=== PATIENT | male | born 1960 | race Caucasian/White ===

== ENCOUNTER → 2016-09-08 | Day surgery (SDC) | payer BC ==
[~2016-09-08] MED LIST: CRES20TA PO; GENTAMICIN SULFATE 80 MG/2 ML VIAL ONE; GLIP-158 PO; GLUCTAB PO; GLYPIZIDE; IBUP-238 PO; KETOROLAC TROMETHAMINE 30 MG/ML (IVP) VIAL IV PUSH ONE; LACTATED RINGER'S 1000 ML INJ 1,000 ML ONE; LISI-360 PO; MIDAZOLAM HCL 2 MG/2 ML VIAL ONE; ONDANSETRON HCL 4 MG/2 ML VIAL IV PUSH ONE; PROPOFOL 200 MG/20 ML AMP IV ONE
--- NOTE | 2016-09-08 20:54 | TN ---
cc: ROJAS SILVA M.D. DATE OF SURGERY 09/08/2016 PREOPERATIVE DIAGNOSES 1. Right ureteral pelvic junction calculus (ICD - 10 code N20.00). 2. Left ureteral calculus (ICD - 10 code N20.1). POSTOPERATIVE DIAGNOSES 1. Right ureteral pelvic junction calculus (ICD - 10 code N20.00). 2. Left ureteral calculus (ICD - 10 code N20.1). PROCEDURE 1. Extracorporeal shock wave lithotripsy of right ureteropelvic junction calculus (CPT code 23935). 2. Extracorporeal shock wave lithotripsy (ESWL) left ureteral calculus and (CPT code 00283). 3. Cystourethroscopy with bilateral ureteral stent placement (6-Bruneian x 22 cm) (CPT code 92908 - 51). INDICATIONS Mr. Bahena is a 56-year-old gentleman who has an approximately 1.4 cm right ureteral pelvic junction calculus and an approximately 9 mm left proximal ureteral calculus. He presents now for definitive treatment of both. Findings are normal urethra with a mild bulbous urethral narrowing or stricture. The prostatic urethra shows bilateral hyperplasia with a mild obstruction and a very elevated bladder neck. The bladder neck itself is open. The trigone shows ureteral orifice normal size, shape and position, effluxing clear urine. There are no aubrie tumors abnormal mucosa or calcifications identified. There are no tumor, stones, or diverticula and no significant trabeculation. The procedure was as follows. PROCEDURE DETAILS The procedure as well as risks and benefits were explained to the patient. Informed consent was obtained. The patient was taken major operative theater where he was placed on the [facility] SLX-FII lithotripsy table. At this time the patient was identified as well as the operative site. A universal time-out was performed in standard fashion. At this time general anesthetic and prophylactic intravenous antibiotics consisting of gentamicin 80 mg was administered. After adequate anesthetic he was placed in low dorsolithotomy position, prepped and draped in the usual sterile fashion. At this time a 22.5 Bruneian cystoscope with a 30 degree lens was inserted into the urethra and bladder with the above findings. Attention was directed to the left ureteral orifice where 0.035 inch hybrid guidewire was placed under fluoroscopic guidance up the ureter into the renal pelvis. Over this guidewire a 6-Bruneian x 22 cm double-J ureteral stent was placed with the help of a pusher. When the distal end could be seen fluoroscopically in the renal pelvis, the pusher and guidewire were removed and there was a nice curl in the bladder. Attention was directed to the right side and the same exact procedure was done with a 0.035 inch hybrid guidewire was able to be placed without difficulty into the renal pelvis, fluoroscopically confirmed, the guidewire and pusher were removed. There is a nice curl radiographically in the renal pelvis rather and the bladder under direct vision. The bladder was then decompressed and cystoscope removed. The patient placed back in the supine position. Attention was then directed to the you right ureteropelvic junction stone and the shock heads were engaged and extracorporeal shock wave lithotripsy was performed in standard fashion at 120 Hz of power level of 7 and 3000 shocks with apparent pulverization of the stone. After completion of that, the left ureteral stone was addressed. The stone was imaged and the shock heads were engaged. A total of 3000 shocks at a high power level of 8.0 of that stone with apparent pulverization that stone. That was done at the same frequency of 120 Hz. At this time the patient emerged from anesthetic without difficulty and was transferred to recovery in stable condition to be discharged home when criteria is met. The patient may require additional endoscopic or extracorporal treatment depending on the results of a KUB in two weeks. MD COLLINS Cordero/MARY /5:09 PM /8:39 PM
== END | disposition home or self-care (01) ==
LOC: ESDC 10:58
PROVIDERS: ATTEND Urology
DX: N20.1 Calculus of ureter (principal); E11.9 Type 2 diabetes mellitus without complications; Z79.84 Long term (current) use of oral hypoglycemic drugs
CPT/HCPCS: 00872; 00910; 50590; 52332; 82948; C1769; J1580; J1885; J2250; J2405; J3010; J7120

== ENCOUNTER → 2016-10-20 | Day surgery (SDC) | payer BC ==
[~2016-10-20] MED LIST changes: +SODIUM CHLORIDE 0.9% SOLN 100 ML (PAB) BAG IV ONE
--- NOTE | 2016-10-21 05:10 | TN ---
cc: ROJAS SILVA M.D. DATE OF SURGERY 10/20/2016 PREOPERATIVE DIAGNOSIS 1. Right renal calculi (ICD-10 N20.0). 2. Left ureteral calculus (ICD-10 code N20.1). POSTOPERATIVE DIAGNOSIS 1. Right renal calculi (ICD-10 N20.0). 2. Left ureteral calculus (ICD-10 code N20.1). PROCEDURE 3. Extracorporeal shock wave lithotripsy (ESWL) of right renal calculi (CPT code 53572). 4. Extracorporal shock wave lithotripsy (ESWL) of left ureteral calculus (CPT code 70095). INDICATION Mr. Bahena is a 56-year-old gentleman who previously underwent bilateral ureteral stent placement with extracorporal shock wave lithotripsy of a 1.4 cm right ureteropelvic junction calculus and a 9-mm left proximal to mid-ureteral calculus who had partial success and presents now for additional treatment of the stones in question. PROCEDURE IN DETAIL The procedure as well as risks and benefits were explained to the patient and informed consent was obtained. The patient was taken to the major operative theater where he was placed in the [facility] SLX-F II lithotripsy table. At this time the patient was identified as well as the operative site. [place] time-out was performed in the standard fashion. General anesthetic and prophylactic intravenous antibiotics consisting of gentamicin 80 mg was administered. At this time a fluoroscopic C-arm was used to visualize the aforementioned stone fragments in the right renal pelvis and shock heads were then engaged and 3000 shocks were administered at a high power level of 7.0 and a frequency of 120 Hz with apparent pulverization of those stones. At this time the fluoroscopic C-arm was used to visualize the aforementioned left ureteral stone. The shock heads were then engaged; a total of 3000 shocks were administered at high power level of 8.0 with a frequency of 120 Hz with apparent pulverization of this stone additionally. The patient tolerated the procedure well and emerged from anesthetic without difficulty, was transferred to the recovery room in stable condition to be discharged home when criteria is met. There are no obvious complications. The patient may require additional endoscopic or extracorporal treatment depending on the results of the KUB in approximately two weeks. MD COLLINS Cordero/KAL /6:03 PM /4:57 AM
== END | disposition home or self-care (01) ==
LOC: ESDC 13:56
PROVIDERS: ATTEND Urology
DX: N20.0 Calculus of kidney (principal); N20.1 Calculus of ureter; Z79.84 Long term (current) use of oral hypoglycemic drugs; E11.9 Type 2 diabetes mellitus without complications
CPT/HCPCS: 00873; 50590; 82948; J1580; J1885; J2250; J2405; J3010; J7120

== ENCOUNTER → 2016-11-30 | Day surgery (SDC) | payer BC ==
[~2016-11-30] MED LIST changes: -SODIUM CHLORIDE 0.9% SOLN 100 ML (PAB) BAG IV ONE; +SODIUM CHLORIDE 0.9% SOLN 100 ML BAG IV ONE
--- NOTE | 2016-11-30 16:47 | TN ---
cc: ROJAS SILVA M.D. DATE OF SURGERY 11/30/2016 PREOPERATIVE DIAGNOSIS Right proximal ureteral calculus. PREOPERATIVE DIAGNOSIS 1. Left proximal ureter left mid ureteral calculus (ICD - 10 N20.1). 2. Right renal calculi (N20.00). POSTOPERATIVE DIAGNOSIS 1. Left proximal ureter left mid ureteral calculus (ICD - 10 N20.1). 2. Right renal calculi (N20.00). PROCEDURE 1. Cystourethroscopy with left ureteroscopic holmium laser lithotripsy and stone basket manipulation (CPT code 74243). 2. Cystourethroscopy with bilateral ureteral stent removal (CPT code 93594 - 50). INDICATIONS Mr. Bahena is a 56-year-old gentleman who had extracorporeal shock-wave lithotripsy for a right ureteral pelvic junction calculus and a left ureteral calculus who presents now for removal of the stents and ureteroscopy for some residual fragments in the ureter on the left. FINDINGS Normal urethra with a mild bulbar membranous urethral stricture. Prostatic urethra shows bilateral hyperplasia with mild obstruction and very elevated bladder neck. The bladder neck is open. The trigone shows the distant end of double-J ureteral stent emerging from the openings bilaterally with a bullous edema and mucosal changes. No tumor, stones, diverticula or significant trabeculation of the bladder itself. Ureteroscopy showed two separate stone fragments within the mid to proximal ureter. PROCEDURE IN DETAILS The procedure as well as risks and benefits were explained to the patient. Informed consent was obtained. The patient was taken to the major operative theater where he was placed in supine position. The patient was identified as well as the operative site. [place] time-out was performed in standard fashion. At this time general anesthetic, prophylactic intravenous antibiotics consisting of gentamicin 80 mg was administered. After adequate effect, the patient was placed in low dorsolithotomy position, prepped and draped in the usual sterile fashion. At this time serial dilatation of the urethral meatus was performed due to some narrowing and difficulty placing the 22.5 Romanian obturator sheath. The urethral meatus was dilated using Nela sounds from 16-Romanian to 26-Romanian without difficulty and then the 22.5 Romanian obturator sheath were placed into the urethra. The obturator was removed and a 30 degree lens cystoscope was placed into the bladder with minimal difficulty. He does have a very high-riding bladder neck. At this time attention was directed to the ureteral orifices where double-J ureteral stents were visualized. The left stent was grasped and brought out to the meatus. However, the right ureteral stent appeared to have been entangled and that came out also. At this time both stents were pulled out, the scope was placed back in the bladder and under fluoroscopic guidance a 0.035-inch hybrid guidewire was placed up the ureter and into the renal pelvis without difficulty. The cystoscope was removed and the guidewire was left as a safety wire attached to the drapes. At this time a semi rigid mini ureteroscope was placed under direct vision up the ureter to the area of the stones. This time one of the larger fragments was identified. A 273 micron fiber was placed in the working end of the scope and holmium laser lithotripsy was performed in standard fashion at a frequency of 35 Hz and 3 joules. The stone was fragmented into four pieces and then individually basketed with a zero-tip nitinol basket and dropped into the bladder. After several passes all of the stone fragments were removed from the ureter. The scope was then placed all the way to the ureteropelvic junction and all the way back out. There was no evidence of any additional stones or trauma to the ureter and decision was made not to place a stent. At this time the ureteroscope was removed and the cystoscope was placed back in the bladder. The fragments were irrigated out and sent for crystallographic analysis. After removal of the safety wire there appeared be a clear efflux of urine on the left and also on the right. The bladder was decompressed and cystoscope removed. The patient tolerated procedure well, emerged from anesthetic without difficulty and transferred to the recovery in stable condition to be discharged home when criteria is met. There were no obvious complications. MD COLLINS Cordero/MARY /4:01 PM /4:18 PM
== END | disposition home or self-care (01) ==
LOC: ESDC 12:14
PROVIDERS: ATTEND Urology
DX: N20.2 Calculus of kidney with calculus of ureter (principal)
CPT/HCPCS: 00918; 52353; 76000; C1769; J1580; J1885; J2250; J2405; J3010; J7120